=== PATIENT | male | born 1980 | race African-American/Black ===

== ENCOUNTER 2022-05-01 09:52 | Emergency (ER) | payer OTHER ==
[2022-05-01 09:57] VITALS: BP 134/78; PULSE 71; RESP 18; BMI 22.4
== END 2022-05-01 11:20 | disposition home or self-care (01) ==
LOC: JERFT 09:52
DX: J06.9 Acute upper respiratory infection, unspecified (principal)
CPT/HCPCS: 0241U-QW; 93005; 93010; 99284-25